=== PATIENT | female | born 1955 | race Caucasian/White ===

== ENCOUNTER 2016-05-07 15:18 | Emergency (ER) | payer MEDICAID | END 2016-05-07 22:13 | disposition home or self-care (01) | LOC: D.ER 15:18 | DX: S80.01XA Contusion of right knee, initial encounter (principal); W19.XXXA Unspecified fall, initial encounter; Y93.89 Activity, other specified; Y92.89 Other specified places as the place of occurrence of the external cause; S00.83XA Contusion of other part of head, initial encounter; M25.561 Pain in right knee ==

== ENCOUNTER → 2016-11-18 13:04 | Outpatient (CLI) | payer MEDICAID | END | disposition home or self-care (01) | LOC: D.US 13:04 | DX: M79.605 Pain in left leg (principal); M79.604 Pain in right leg; R60.9 Edema, unspecified ==